=== PATIENT | male | born 1950 | race Caucasian/White ===

== ENCOUNTER 2017-05-26 07:34 | Day surgery (SDC) | payer MEDICARE ==
[~2017-05-26] VITALS: Ht 182.9 cm; Wt 89.8 kg
[~2017-05-26 07:34] MED LIST: ADVAIR DISK1 INH; AMOXICILLIN500 MG PO; ATENOLOL25 MG PO; CIPROFLOXACN500 MG PO; CYMBALTA60 MG PO; PROAIR HFA IN; ROCEPHIN 2250 MG/VIA IM; SIMVASTATIN10 MG PO; SIMVASTATIN40 MG PO; TESTOST ENA200 MG/ML IM; VIBERZI100 MG PO; ZITHROMAX500 MG PO
[2017-05-26 10:51] VITALS: BP 124/78
== END 2017-05-26 11:02 | disposition home or self-care (01) ==
LOC: ENDO 07:34 → ORM 12:15 → ENDO 12:15
PROVIDERS: ATTEND Internal Medicine Gastroenterology
PROC: 0DBK8ZX Excision of Ascending Colon, Via Natural or Artificial Opening Endoscopic, Diagnostic (ICD-10-PCS; principal; 2017-05-26)
DX: K57.31 Diverticulosis of large intestine without perforation or abscess with bleeding (principal); K58.0 Irritable bowel syndrome with diarrhea; K64.4 Residual hemorrhoidal skin tags; K64.8 Other hemorrhoids; I10 Essential (primary) hypertension; E78.00 Pure hypercholesterolemia, unspecified; F32.9 Major depressive disorder, single episode, unspecified

== ENCOUNTER 2017-07-21 09:30 | Day surgery (SDC) | payer MEDICARE ==
[~2017-07-21] VITALS: Ht 182.9 cm; Wt 93.0 kg
[~2017-07-21 09:30] MED LIST changes: +LOMOTIL2.5 MG PO
[2017-07-21 12:06] VITALS: BP 120/71
== END 2017-07-21 12:20 | disposition home or self-care (01) ==
LOC: ENDO 09:30 → ORM 18:00
PROVIDERS: ATTEND Internal Medicine Gastroenterology
PROC: 0DB98ZX Excision of Duodenum, Via Natural or Artificial Opening Endoscopic, Diagnostic (ICD-10-PCS; principal; 2017-07-21)
PROC: 0DB48ZX Excision of Esophagogastric Junction, Via Natural or Artificial Opening Endoscopic, Diagnostic (ICD-10-PCS; 2017-07-21)
DX: R19.5 Other fecal abnormalities (principal); K22.2 Esophageal obstruction; K21.9 Gastro-esophageal reflux disease without esophagitis; K29.70 Gastritis, unspecified, without bleeding; Q39.8 Other congenital malformations of esophagus; K22.70 Barrett's esophagus without dysplasia; K58.0 Irritable bowel syndrome with diarrhea; K57.90 Diverticulosis of intestine, part unspecified, without perforation or abscess without bleeding; K64.8 Other hemorrhoids; I10 Essential (primary) hypertension; E78.00 Pure hypercholesterolemia, unspecified; F32.9 Major depressive disorder, single episode, unspecified; Z85.828 Personal history of other malignant neoplasm of skin

== ENCOUNTER 2018-07-21 14:50 | Emergency (ER) | payer MEDICARE ==
[~2018-07-21] VITALS: Ht 182.9 cm; Wt 94.5 kg
[2018-07-21] MEDS ORDERED: CYANOCOBAL1000 MCG/M IM (15:25)
[2018-07-21] MEDS ORDERED: TIZANIDINE HCL2 M1 PO (15:25)
[2018-07-21] MEDS ORDERED: TRAMADOL HYDROC50 MG PO (16:43)
[2018-07-21 16:55] VITALS: BP 121/79
== END 2018-07-21 16:55 | disposition home or self-care (01) ==
LOC: ED 14:50
DX: S86.911A Strain of unspecified muscle(s) and tendon(s) at lower leg level, right leg, initial encounter (principal); I10 Essential (primary) hypertension; X58.XXXA Exposure to other specified factors, initial encounter